=== PATIENT | female | born 1960 | race Caucasian/White ===

== ENCOUNTER 2021-03-19 14:22 | Emergency (ER) | payer BC ==
[~2021-03-19 14:22] MED LIST: ANTIVERT 12.512.5 MG PO; BASAGLAR K100 UNIT/1 SQ; BUPROPION XL150 MG PO; BUSPAR 5MG TABLE5 MG PO; BYSTOLIC2.5 MG PO; CLARITIN10 MG PO; CRESTOR40 MG PO; DOXYCYCLINE MO100 MG PO; ECOTRIN81 MG PO; FENOFIBRATE134 MG PO; FISH OIL 500 M1 EAC1 PO; FLONASE 0.05% N16 GM; HYDROCHLOROTH12.5 MG PO; INVOKANA100 MG PO; JANUVIA100 MG PO; MEDROL TAB 4 MG4 MG PO; NORCO 5-325 TA1 EACH PO; SINGULAIR10 MG PO; VITAMIN D250000 UNIT PO
[2021-03-19 16:30] LABS: HEMOGLOBIN 13.1 gm/dl (12.3-15.3); RED BLOOD COUNT 4.49 M/UL (4.00-5.10); WHITE BLOOD COUNT 4.2 K/UL (4.5-11.0)
[2021-03-19 16:57] LABS: BUN/CREATININE RATIO 36 (0-10)
[2021-03-19] MEDS ORDERED: TORADOL 10 MG T10 MG PO (20:12)
[2021-03-19] MEDS ORDERED: PYRIDIUM200 MG PO (20:12)
[2021-03-19] MEDS ORDERED: ONDANSETRON ODT4 MG SL (20:12)
== END 2021-03-19 22:05 | disposition home or self-care (01) ==
LOC: ER1 14:22
PROVIDERS: Physician Assistant
DX: R10.9 Unspecified abdominal pain (principal); I10 Essential (primary) hypertension; E11.9 Type 2 diabetes mellitus without complications; E78.5 Hyperlipidemia, unspecified; R31.9 Hematuria, unspecified; Z87.442 Personal history of urinary calculi; Z88.8 Allergy status to other drugs, medicaments and biological substances; Z85.53 Personal history of malignant neoplasm of renal pelvis
CPT/HCPCS: 80053; 81001; 82550; 82553; 83690; 83874; 84484; 85025; 87086; 93005; 96374; 96375; 99284; J1885; J2270; J2405; Q9967

== ENCOUNTER → 2021-05-25 | Outpatient (CLI) | payer BC ==
[~2021-05-25] VITALS: Ht 160 cm; Wt 69.9 kg
[~2021-05-25] MED LIST changes: +ONDANSETRON ODT4 MG SL; +PYRIDIUM200 MG PO; +TORADOL 10 MG T10 MG PO
== END ==
LOC: EROP 14:08
DX: U07.1 COVID-19 (principal); Z23 Encounter for immunization; I12.9 Hypertensive chronic kidney disease with stage 1 through stage 4 chronic kidney disease, or unspecified chronic kidney disease; E11.22 Type 2 diabetes mellitus with diabetic chronic kidney disease; N18.9 Chronic kidney disease, unspecified
CPT/HCPCS: M0247; Q0247